=== PATIENT | male | born 1960 | race Caucasian/White ===

== ENCOUNTER 2018-07-05 11:53 | Emergency (ER) | payer OTHER ==
[2018-07-05] MEDS ORDERED: Acetaminophen 325 MG Tab PO ONE (12:45)
[2018-07-05] MEDS ORDERED: oxyCODONE 5 MG Tab PO ONE ×2 (12:46→13:54)
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
[2018-07-05 14:16] VITALS: BP 147/95
== END 2018-07-05 14:43 | disposition home or self-care (01) ==
LOC: JP.ED 11:53
DX: S42.201A Unspecified fracture of upper end of right humerus, initial encounter for closed fracture (principal); Z79.899 Other long term (current) drug therapy; F17.210 Nicotine dependence, cigarettes, uncomplicated; V86.52XA Driver of snowmobile injured in nontraffic accident, initial encounter
CPT/HCPCS: 73030; 99284; A9270

== ENCOUNTER 2019-04-29 14:29 | Emergency (ER) | payer MEDICARE, OTHER ==
[2019-04-29] MEDS ORDERED: LORazepam 1 MG Tab PO ONE (15:02)
[2019-04-29] MEDS ORDERED: Aspirin 81 MG Tab.Chew PO ONE (15:02)
--- NOTE | 2019-04-29 15:06 | EDM.PDOC ---
ED HPI GENERAL MEDICAL PROBLEM - General Chief Complaint: Chest Pain Stated Complaint: CHEST PAIN Time Seen by Provider: 04/29/19 14:54 Source of Information: Reports: Patient, Family, RN Notes Reviewed History Limitations: Reports: No Limitations - History of Present Illness INITIAL COMMENTS - FREE TEXT/NARRATIVE: 58-year-old gentleman presents emergency department today complaint of chest pain, he feels like he is going to , complaint chest pain with radiations up into the jaw he feels short of breath diaphoretic nauseated he states the symptoms have been going on for 4 weeks they happen multiple times a day sometimes lasting for up to 2 hours at a time. He does admit to being under a lot of stress with both his father and his daughter knee requiring care [place] Chest Pain Score (Numeric/FACES): 5 - Related Data Allergies Allergy/AdvReac Type Severity Reaction Status Date / Time No Known Allergies Allergy Verified 07/05/18 12:12 Home Meds: Home Meds Certolizumab Pegol [Cimzia] 11/12/14 [History] Escitalopram [Lexapro] 20 mg PO DAILY 07/05/18 [History] Gabapentin [Neurontin] 300 mg PO TID 07/05/18 [History] Past Medical History Cardiovascular History: Reports: Angina Musculoskeletal History: Reports: Other (See Below) Other Musculoskeletal History: vascular necrosis both legs. . Other Neuro History: Chronic pain syndrome Psychiatric History: Reports: Addiction - Past Surgical History Musculoskeletal Surgical History: Reports: Hip Replacement Other Musculoskeletal Surgeries/Procedures:: Both hips replaced Social & Family History - Family History Cardiac: Reports: CAD, Heart Failure, [place] (Parents, mother age 58 secondary myocardial infarction) - Tobacco Use Smoking Status *Q: Former Smoker - Caffeine Use Caffeine Use: Reports: Coffee - Recreational Drug Use Recreational Drug Use: No ED ROS GENERAL - Review of Systems Review Of Systems: See Below Constitutional: Reports: Diaphoresis HEENT: Reports: No Symptoms Respiratory: Reports: Shortness of Breath Cardiovascular: Reports: Chest Pain, Palpitations GI/Abdominal: Reports: Nausea : Reports: No Symptoms Musculoskeletal: Reports: No Symptoms Skin: Reports: No Symptoms ED EXAM, GENERAL - Physical Exam Exam: See Below Exam Limited By: No Limitations General Appearance: Alert, WD/WN, No Apparent Distress Neck: Normal Inspection, Supple, Non-Tender, Full Range of Motion Respiratory/Chest: No Respiratory Distress, Lungs Clear, Normal Breath Sounds, No Accessory Muscle Use, Chest Non-Tender Cardiovascular: Regular Rate, Rhythm, No Murmur GI/Abdominal: Soft, Non-Tender Course - Vital Signs Last Recorded V/S: Last Vital Signs Temp 96.8 F 04/29/19 14:42 Pulse 89 04/29/19 16:10 Resp 17 04/29/19 16:10 BP 130/92 H 04/29/19 16:10 Pulse Ox 97 04/29/19 16:10 - Orders/Labs/Meds Orders: Active Orders 24 hr Category Date Time Status Cardiac Monitoring [RC] .As Directed Care 04/29/19 15:02 Active EKG Documentation Completion [RC] ASDIRECTED Care 04/29/19 15:02 Active EKG 12 Lead [EK] Stat Ther 04/29/19 15:02 Ordered Labs: Laboratory Tests 04/29/19 04/29/19 Range/Units 15:07 15:07 WBC 6.1 (4.5-11.0) K/uL RBC 4.38 (4.30-5.90) M/uL Hgb 14.2 (12.0-15.0) g/dL Hct 42.2 (40.0-54.0) % MCV 96 (80-98) fL MCH 32 H (27-31) pg MCHC 34 (32-36) % Plt Count 333 (150-400) K/uL Neut % (Auto) 52 (36-66) % Lymph % (Auto) 32 (24-44) % [place] % (Auto) 11 H (2-6) % Eos % (Auto) 4 (2-4) % Baso % (Auto) 1 (0-1) % Sodium (140-148) mmol/L Potassium (3.6-5.2) mmol/L Chloride (100-108) mmol/L Carbon Dioxide (21-32) mmol/L Anion Gap (5.0-14.0) mmol/L BUN (7-18) mg/dL Creatinine (0.8-1.3) mg/dL Est Cr Clr Drug Dosing mL/min Estimated GFR (MDRD) (>60) BUN/Creatinine Ratio Glucose (74-106) mg/dL Calcium (8.5-10.1) mg/dL Total Bilirubin (0.2-1.0) mg/dL AST (15-37) U/L ALT (12-78) U/L Alkaline Phosphatase (46-116) U/L Troponin I < 0.017 (0.000-0.056) ng/mL Total Protein (6.4-8.2) g/dL Albumin (3.4-5.0) g/dL Globulin (2.3-3.5) g/dL Albumin/Globulin Ratio (1.2-2.2) Meds: Medications Discontinued Medications Generic Name Dose Route Start Last Admin Trade Name Hieu PRN Reason Stop Dose Admin Aspirin 324 mg 04/29/19 15:02 04/29/19 15:06 Aspirin PO 04/29/19 15:03 324 mg ONETIME ONE Administration Lorazepam 1 mg 04/29/19 15:02 04/29/19 15:06 Ativan PO 04/29/19 15:03 1 mg ONETIME ONE Administration Departure - Departure Time of Disposition: 16:35 Disposition: Home, Self-Care 01 Condition: Fair Clinical Impression: Panic attack Referrals: PCP,None [Primary Care Provider] - Forms: ED Department Discharge Additional Instructions: Use Ativan as needed for symptomatic relief, Please followup with your primary care provider in 3-5 days if not better, please call return to the emergency department with worsening of symptoms. - My Orders Last 24 Hours: My Active Orders 04/29/19 15:02 Cardiac Monitoring [RC] .As Directed EKG Documentation Completion [RC] ASDIRECTED EKG 12 Lead [EK] Stat - Assessment/Plan Last 24 Hours: My Active Orders 04/29/19 15:02 Cardiac Monitoring [RC] .As Directed EKG Documentation Completion [RC] ASDIRECTED EKG 12 Lead [EK] Stat Plan: Assessment Acuity = acute Site and laterality = panic attack Etiology = generalized anxiety disorder Manifestations = none Location of injury = Home Lab values = CBC, CMP, troponin, chest x-ray, EKG all within normal limits Plan Had good relief with Ativan provided prescription written for Ativan 1 mg by mouth 3 times a day when necessary total #10 him follow-up with his primary care in next 3-5 days for reevaluation This note was dictated using [employer] voice recognition software please call with any questions on syntax or grammar.
--- NOTE | 2019-04-29 15:37 | CRLCR ---
INDICATION: chest pain CHEST, PA AND LATERAL Upright PA and lateral radiographs of the chest were performed. Comparison: No previous studies are currently available for comparison. The lungs appear clear and there are no pleural effusions. Heart size and pulmonary vasculature appear normal. Visualized bones show no significant findings. IMPRESSION: No acute intrathoracic abnormality identified. PEPE OWENS MD [employer] Dictated by: Jimbo Owens MD @ 04/29/2019 15:36:20 (Electronically Signed)
[2019-04-29 16:11] VITALS: BP 130/92; PULSE 89
== END 2019-04-29 16:42 | disposition home or self-care (01) ==
LOC: JP.ED 14:29
DX: F41.0 Panic disorder [episodic paroxysmal anxiety] (principal)
CPT/HCPCS: 36415; 71046; 80053; 84484; 85025; 93005; 99285; A9270

== ENCOUNTER 2021-01-05 11:39 | Emergency (ER) | payer MEDICARE, BC ==
[2021-01-05] MEDS ORDERED: Ondansetron 4 MG/2 ML SDV IVPUSH ONE (12:24)
[2021-01-05] MEDS ORDERED: MVI, Adult with Vitamin K 10 ML, Thiamine 100 MG, Folic Acid 1 MG, Magnesium Sulfate 3 ... IV SCH ×5 (12:30)
--- NOTE | 2021-01-05 13:24 | EDM.PDOC ---
ED HPI GENERAL MEDICAL PROBLEM - General Chief Complaint: Drug or Alcohol Abuse Stated Complaint: ALCOHOL Withdrawal Time Seen by Provider: 01/05/21 12:10 Source of Information: Reports: Patient, Family History Limitations: Reports: No Limitations - History of Present Illness INITIAL COMMENTS - FREE TEXT/NARRATIVE: This is a 60 year old male presenting with alcohol withdrawal. Patient reports that he has been abusing alcohol over the past 1.5 years, but it has gotten worse over the past few months. he reports drinking about a 12 pack of beer daily and sometimes taking additional shots of alcohol. He reports that he tried to stop drinking cold turkey and started to develop withdrawal symptoms, including feeling shaky, sweating, nausea, and heart racing. He did drink 3 bee rs this morning around 7 am to try to help ease his symptoms. no alcohol since then. He has been through alcohol withdrawal a long time ago, but managed himself and has never been to detox before. He feels like he needs detox now. Generalized Pain Score (Numeric/FACES): 9 - Related Data Allergies Allergy/AdvReac Type Severity Reaction Status Date / Time infliximab [From Remicade] Allergy Airway Verified 01/05/21 12:05 Tightness propranolol [From Inderal LA] Allergy Airway Verified 01/05/21 12:05 Tightness Home Meds: Home Meds Certolizumab Pegol [Cimzia] 0 mg IM ASDIRECTED 11/12/14 [History] Escitalopram [Lexapro] 20 mg PO DAILY 07/05/18 [History] Gabapentin [Neurontin] 300 mg PO TID 07/05/18 [History] SUMAtriptan [Imitrex] 50 mg PO ASDIRECTED PRN 01/05/21 [History] Past Medical History HEENT History: Reports: None Cardiovascular History: Reports: Angina Respiratory History: Reports: None Gastrointestinal History: Reports: GERD Genitourinary History: Reports: None Musculoskeletal History: Reports: Other (See Below) Other Musculoskeletal History: vascular necrosis both legs. . Neurological History: Reports: Migraines Other Neuro History: Chronic pain syndrome Psychiatric History: Reports: Addiction Endocrine/Metabolic History: Reports: None Hematologic History: Reports: None Immunologic History: Reports: None Oncologic (Cancer) History: Reports: None Dermatologic History: Reports: None - Infectious Disease History Infectious Disease History: Reports: Mumps - Past Surgical History HEENT Surgical History: Reports: None GI Surgical History: Reports: Appendectomy, [place] Fundoplication Musculoskeletal Surgical History: Reports: Hip Replacement Other Musculoskeletal Surgeries/Procedures:: Both hips replaced Social & Family History - Family History Cardiac: Reports: CAD, Heart Failure, [place] - Tobacco Use Tobacco Use Comment: harpreet uses nicotine gum - Caffeine Use Caffeine Use: Reports: Coffee - Recreational Drug Use Recreational Drug Type: Reports: Marijuana/Hashish Recreational Drug Use Frequency: Rarely ED ROS GENERAL - Review of Systems Review Of Systems: Comprehensive ROS is negative, except as noted in HPI. ED EXAM, GENERAL - Physical Exam Exam: See Below Exam Limited By: No Limitations General Appearance: Alert, No Apparent Distress Eye Exam: Bilateral Eye: PERRL Nose: Normal Inspection Throat/Mouth: Other (MMM. Tongue fasciculations present) Head: Atraumatic, Normocephalic Neck: Supple, Full Range of Motion Respiratory/Chest: No Respiratory Distress, Lungs Clear, Normal Breath Sounds Cardiovascular: Normal Peripheral Pulses, Regular Rate, Rhythm Extremities: No Pedal Edema Neurological: Alert, Oriented, CN II-XII Intact, Other (tremulous. ) Psychiatric: Normal Affect, Normal Mood Skin Exam: Diaphoretic Course - Vital Signs Last Recorded V/S: Last Vital Signs Temp 97.4 F 01/05/21 12:01 Pulse 86 01/05/21 16:05 Resp 16 01/05/21 16:05 BP 141/86 H 01/05/21 16:05 Pulse Ox 98 01/05/21 16:05 - Orders/Labs/Meds Orders: Active Orders 24 hr Category Date Time Status MVI, Adult with Vitamin K [Infuvite Adult] 10 ml Med 01/05/21 12:30 Active Thiamine [Vitamin B-1] 100 mg Folic Acid 1 mg Magnesium Sulfate [Magnesium Sulfate 50%] 3 gm Sodium Chloride 0.9% [Normal Saline] 1,000 ml IV ASDIRECTED Medication Orders Multivitamins/Minerals 10 ml/Thiamine HCl 100 mg/ Folic Acid 1 mg/ Magnesium Sulfate 3 gm/ Sodium Chloride 1,017.2 mls @ 1,000 mls/hr IV ASDIRECTED TANG Last Admin: 01/05/21 13:11 Dose: 1,000 mls/hr Documented by: [email or web address] Labs: Laboratory Tests 01/05/21 01/05/21 01/05/21 Range/Units 12:34 12:34 12:34 WBC 9.5 (4.5-11.0) K/uL RBC 5.10 (4.30-5.90) M/uL Hgb 16.3 H D (12.0-15.0) g/dL Hct 49.3 (40.0-54.0) % MCV 97 (80-98) fL MCH 32 H (27-31) pg MCHC 33 (32-36) % Plt Count 361 (150-400) K/uL Neut % (Auto) 69.0 H (36-66) % Lymph % (Auto) 22.5 L (24-44) % [place] % (Auto) 7.8 H (2-6) % Eos % (Auto) 0.4 L (2-4) % Baso % (Auto) 0.3 (0-1) % Sodium 143 (140-148) mmol/L Potassium 4.5 (3.6-5.2) mmol/L Chloride 103 (100-108) mmol/L Carbon Dioxide 26 (21-32) mmol/L Anion Gap 14.5 H (5.0-14.0) mmol/L BUN 7 (7-18) mg/dL Creatinine 1.0 (0.8-1.3) mg/dL Est Cr Clr Drug Dosing 76.00 mL/min Estimated GFR (MDRD) > 60 (>60) Glucose 103 (74-106) mg/dL Calcium 10.0 (8.5-10.1) mg/dL Total Bilirubin 1.0 (0.2-1.0) mg/dL AST 25 (15-37) U/L ALT 42 (12-78) U/L Alkaline Phosphatase 85 (46-116) U/L Total Protein 8.5 H (6.4-8.2) g/dL Albumin 4.7 (3.4-5.0) g/dL Globulin 3.8 H (2.3-3.5) g/dL Albumin/Globulin Ratio 1.2 (1.2-2.2) Urine Opiates Screen (NEGATIVE) Ur Oxycodone Screen (NEGATIVE) Urine Methadone Screen (NEGATIVE) Ur Propoxyphene Screen (NEGATIVE) Ur Barbiturates Screen (NEGATIVE) Ur Tricyclics Screen (NEGATIVE) Ur Phencyclidine Scrn (NEGATIVE) Ur Amphetamine Screen (NEGATIVE) U Methamphetamines Scrn (NEGATIVE) Urine MDMA Screen (NEGATIVE) U Benzodiazepines Scrn (NEGATIVE) U Cocaine Metab Screen (NEGATIVE) U Marijuana (THC) Screen (NEGATIVE) Ethyl Alcohol < 3 mg/dL SARS CoV-2 RNA Rapid JAMIE 01/05/21 01/05/21 Range/Units 13:55 15:52 WBC (4.5-11.0) K/uL RBC (4.30-5.90) M/uL Hgb (12.0-15.0) g/dL Hct (40.0-54.0) % MCV (80-98) fL MCH (27-31) pg MCHC (32-36) % Plt Count (150-400) K/uL Neut % (Auto) (36-66) % Lymph % (Auto) (24-44) % [place] % (Auto) (2-6) % Eos % (Auto) (2-4) % Baso % (Auto) (0-1) % Sodium (140-148) mmol/L Potassium (3.6-5.2) mmol/L Chloride (100-108) mmol/L Carbon Dioxide (21-32) mmol/L Anion Gap (5.0-14.0) mmol/L BUN (7-18) mg/dL Creatinine (0.8-1.3) mg/dL Est Cr Clr Drug Dosing mL/min Estimated GFR (MDRD) (>60) Glucose (74-106) mg/dL Calcium (8.5-10.1) mg/dL Total Bilirubin (0.2-1.0) mg/dL AST (15-37) U/L ALT (12-78) U/L Alkaline Phosphatase (46-116) U/L Total Protein (6.4-8.2) g/dL Albumin (3.4-5.0) g/dL Globulin (2.3-3.5) g/dL Albumin/Globulin Ratio (1.2-2.2) Urine Opiates Screen Negative (NEGATIVE) Ur Oxycodone Screen Negative (NEGATIVE) Urine Methadone Screen Negative (NEGATIVE) Ur Propoxyphene Screen Negative (NEGATIVE) Ur Barbiturates Screen Negative (NEGATIVE) Ur Tricyclics Screen Presumptive positive H (NEGATIVE) Ur Phencyclidine Scrn Negative (NEGATIVE) Ur Amphetamine Screen Negative (NEGATIVE) U Methamphetamines Scrn Negative (NEGATIVE) Urine MDMA Screen Negative (NEGATIVE) U Benzodiazepines Scrn Negative (NEGATIVE) U Cocaine Metab Screen Negative (NEGATIVE) U Marijuana (THC) Screen Presumptive positive H (NEGATIVE) Ethyl Alcohol mg/dL SARS CoV-2 RNA Rapid JAMIE Negative Meds: Medications Generic Name Dose Route Start Last Admin Trade Name Freq PRN Reason Stop Dose Admin Multivitamins/Minerals 10 ml/ 1,017.2 mls @ 1,000 mls/hr 01/05/21 12:30 01/05/21 13:11 Thiamine HCl 100 mg/ Folic IV 1,000 mls/hr Acid 1 mg/ Magnesium Sulfate 3 ASDIRECTED TANG Administration gm/ Sodium Chloride Discontinued Medications Generic Name Dose Route Start Last Admin Trade Name Freq PRN Reason Stop Dose Admin Diazepam 5 mg 01/05/21 12:24 01/05/21 13:09 Diazepam 10 Mg/2 Ml Syringe IVPUSH 01/05/21 12:25 5 mg ONETIME ONE Administration Diazepam 10 mg 01/05/21 13:28 01/05/21 13:54 Diazepam 5 Mg Tab PO 01/05/21 13:29 10 mg ONETIME ONE Administration Diazepam 10 mg 01/05/21 15:36 01/05/21 15:44 Diazepam 5 Mg Tab PO 01/05/21 15:37 10 mg ONETIME ONE Administration Ondansetron HCl 4 mg 01/05/21 12:24 01/05/21 13:04 Ondansetron 4 Mg/2 Ml Sdv IVPUSH 01/05/21 12:25 4 mg ONETIME ONE Administration Departure - Departure Time of Disposition: 15:37 (Discharged to Detox) Disposition: DC/Tfer to Other 70 Condition: Good Clinical Impression: Alcohol abuse Alcohol withdrawal Qualifiers: Complication of substance-induced condition: uncomplicated - Discharge Information Instructions: Alcohol Withdrawal Syndrome, Alcohol Abuse and Dependence Information, Adult Referrals: PCP,None [Primary Care Provider] - Forms: ED Department Discharge Sepsis Event Note (ED) - Evaluation Sepsis Screening Result: No Definite Risk - Focused Exam Vital Signs: Vital Signs Temp Pulse Resp BP Pulse Ox 01/05/21 16:05 86 16 141/86 H 98 01/05/21 13:56 92 16 127/88 99 01/05/21 12:01 97.4 F 110 H 20 170/120 H 95 - Problem List Review Problem List Initiated/Reviewed/Updated: Yes - My Orders Last 24 Hours: My Active Orders 01/05/21 12:30 MVI, Adult with Vitamin K [Infuvite Adult] 10 ml Thiamine [Vitamin B-1] 100 mg Folic Acid 1 mg Magnesium Sulfate [Magnesium Sulfate 50%] 3 gm Sodium Chloride 0.9% [Normal Saline] 1,000 ml IV ASDIRECTED - Assessment/Plan Last 24 Hours: My Active Orders 01/05/21 12:30 MVI, Adult with Vitamin K [Infuvite Adult] 10 ml Thiamine [Vitamin B-1] 100 mg Folic Acid 1 mg Magnesium Sulfate [Magnesium Sulfate 50%] 3 gm Sodium Chloride 0.9% [Normal Saline] 1,000 ml IV ASDIRECTED Assessment:: This is a 60 year old male presenting with alcohol withdrawal. No history of withdrawal seizures and no evidence of any seizure activity today. His work-up today has been otherwise unremarkable. He was treated with a banana bag and one dose of IV and two doses of PO Valium in the ED with improvement of his withdrawal symptoms. He is stable for discharge to detox for continued management of his alcohol withdrawal. Transported to detox by private vehicle by his .
[2021-01-05] MEDS ORDERED: Diazepam 5 MG Tab PO ONE ×2 (13:28→15:36)
[2021-01-05 16:05] VITALS: BP 141/86; PULSE 86
== END 2021-01-05 16:56 | disposition other institution (70) ==
LOC: JP.ED 11:39
DX: F10.130 Alcohol abuse with withdrawal, uncomplicated (principal); G43.909 Migraine, unspecified, not intractable, without status migrainosus; Z88.8 Allergy status to other drugs, medicaments and biological substances; Z79.899 Other long term (current) drug therapy; Z20.822 Contact with and (suspected) exposure to COVID-19
CPT/HCPCS: 36415; 80053; 80305; 80307; 85025; 96365; 96375; 99285; A9270; J2405; J3360; J3411; J3475; J7030; U0002; J3490

== ENCOUNTER 2023-02-11 12:09 | Emergency (ER) | payer MEDICARE, BC ==
[2023-02-11 12:21] LABS: BASOPHILS ABSOLUTE AUTO 0.05 K/uL (0.00-0.10); BASOPHILS PERCENT AUTO 0.9 % (0.1-1.3); EOSINOPHILS ABSOLUTE AUTO 0.18 K/uL (0.00-0.40); EOSINOPHILS PERCENT AUTO 3.1 % (0.0-5.4); HEMATOCRIT 41.5 % (38.4-49.7); HEMOGLOBIN 14.3 g/dL (12.9-16.9); IMMATURE GRAN PERCENT AUTO 0.2 % (0.0-0.7); LYMPHOCYTES ABSOLUTE AUTO 2.59 K/uL (0.8-3.3); LYMPHOCYTES PERCENT AUTO 44.2 % (11.4-47.7); MEAN CORPUSCULAR HEMOGLOBIN 31.4 pg (31.6-35.5); MEAN CORPUSCULAR HGB CONC 34.5 g/dL (31.6-35.5); MONOCYTES ABSOLUTE AUTO 0.45 K/uL (0.20-0.90); MONOCYTES PERCENT AUTO 7.7 % (3.3-12.6); NEUTROPHILS ABSOLUTE AUTO 2.58 K/uL (1.0-7.6); NEUTROPHILS PERCENT AUTO 43.9 % (40.0-78.1); PLATELET COUNT,PLT 299 K/uL (130-375); RED BLOOD CELL COUNT 4.56 M/uL (4.14-5.76); WHITE BLOOD CELL COUNT,WBC 5.9 K/uL (3.2-11.0)
[2023-02-11 12:22] LABS: IMMATURE GRAN ABSOLUTE AUTO 0.01 K/uL (0.00-0.23)
[2023-02-11 12:46] LABS: BLOOD UREA NITROGEN,BUN 7 mg/dL (7-18); CALCIUM 9.4 mg/dL (8.5-10.1); CARBON DIOXIDE,CO2 28 mmol/L (21-32); CHLORIDE,CL 106 mmol/L (100-108); CREATININE 0.9 mg/dL (0.8-1.3); EST CRCL DRUG DOSING (CG) 82.33 mL/min; ESTIMATED GFR 97 mL/min (>60); GLUCOSE RANDOM 103 mg/dL (74-106); POTASSIUM,K 3.9 mmol/L (3.6-5.2); SODIUM,NA 144 mmol/L (140-148)
[2023-02-11 12:49] LABS: TROPONIN I HIGH SENSITIVITY < 4.0 pg/mL (<=60.3)
[2023-02-11 15:59] VITALS: BP 131/71; PULSE 62
== END 2023-02-11 16:01 | disposition home or self-care (01) ==
LOC: JP.ED 12:09
DX: F41.9 Anxiety disorder, unspecified (principal); I25.119 Atherosclerotic heart disease of native coronary artery with unspecified angina pectoris; I25.2 Old myocardial infarction; Z87.891 Personal history of nicotine dependence; Z79.899 Other long term (current) drug therapy; Z88.8 Allergy status to other drugs, medicaments and biological substances; Z88.4 Allergy status to anesthetic agent
CPT/HCPCS: 36415; 80048; 84484; 85025; 93005; 99285

== ENCOUNTER 2023-06-30 07:58 | Emergency (ER) | payer OTHER, MEDICARE ==
[2023-06-30 08:45] LABS: HEMATOCRIT 44.6 % (38.4-49.7); MEAN CORPUSCULAR HEMOGLOBIN 31.1 pg (31.6-35.5); MEAN CORPUSCULAR HGB CONC 35.9 g/dL (31.6-35.5); MEAN CORPUSCULAR VOLUME 86.6 fL (81.4-99.0); PLATELET COUNT,PLT 319 K/uL (130-375); RED BLOOD CELL COUNT 5.15 M/uL (4.14-5.76); WHITE BLOOD CELL COUNT,WBC 8.1 K/uL (3.2-11.0)
[2023-06-30] MEDS ORDERED: Sodium Chloride 0.9% 1,000 ML IV ONE (08:45)
[2023-06-30 09:04] LABS: ATYPICAL LYMPHOCYTES FEW; BAND ABSOLUTE MAN 0.41 K/uL; BAND PERCENT MAN 5 % (5-11); LYMPHOCYTES ABSOLUTE MAN 2.11 K/uL (0.8-3.3); LYMPHOCYTES PERCENT MAN 26 % (24-44); MONOCYTES ABSOLUTE MAN 0.65 K/uL (0.20-0.90); MONOCYTES PERCENT MAN 8 % (2-6); NEUTROPHILS ABSOLUTE MAN 4.94 K/uL (1.0-7.6); SEG NEUTROPHILS PERCENT MAN 61 % (36-66)
[2023-06-30 09:06] LABS: A/G RATIO 0.8 (1.2-2.2); ALANINE AMINOTRANSFERASE,ALT 34 U/L (12-78); ALBUMIN 3.7 g/dL (3.4-5.0); ALKALINE PHOSPHATASE 96 U/L (46-116); ASPARTATE AMNIOTRANSFERASE,AST 41 U/L (15-37); BILIRUBIN TOTAL 0.5 mg/dL (0.2-1.0); BLOOD UREA NITROGEN,BUN 10 mg/dL (7-18); C-REACTIVE PROTEIN 5.89 mg/dL (<0.50); CALCIUM 8.6 mg/dL (8.5-10.1); CARBON DIOXIDE,CO2 26 mmol/L (21-32); CHLORIDE,CL 95 mmol/L (100-108); EST CRCL DRUG DOSING (CG) 73.15 mL/min; ESTIMATED GFR 85 mL/min (>60); GLUCOSE RANDOM 114 mg/dL (74-106); PROTEIN TOTAL,TP 8.1 g/dL (6.4-8.2); SODIUM,NA 132 mmol/L (140-148)
[2023-06-30 09:10] LABS: ANION GAP 13.9 mmol/L (5.0-14.0)
[2023-06-30 09:12] LABS: POTASSIUM,K 2.9 mmol/L (3.6-5.2)
[2023-06-30] MEDS ORDERED: Ketorolac 30 MG/ML SDV IVPUSH ONE (09:20)
[2023-06-30 09:23] LABS: CORONAVIRUS COVID-19 NAA NEGATIVE (NEGATIVE); INFLUENZA A NAA POSITIVE (NEGATIVE); INFLUENZA B NAA NEGATIVE (NEGATIVE); RESPIRATORY SYNCYTIAL VIR NAA NEGATIVE (NEGATIVE)
[2023-06-30] MEDS ORDERED: Potassium Chloride 10% 20 MEQ/15 ML Soln 15 ML UD Cup PO ONE (09:23)
[2023-06-30] MEDS ORDERED: Potassium Chloride 20 MEQ Tab.ER PO ONE (09:32)
[2023-06-30 09:36] VITALS: BP 139/95; PULSE 87
== END 2023-06-30 11:21 | disposition home or self-care (01) ==
LOC: JP.ED 07:58
DX: J10.1 Influenza due to other identified influenza virus with other respiratory manifestations (principal); E87.6 Hypokalemia; I25.10 Atherosclerotic heart disease of native coronary artery without angina pectoris; I25.2 Old myocardial infarction; Z20.822 Contact with and (suspected) exposure to COVID-19; Z90.49 Acquired absence of other specified parts of digestive tract
CPT/HCPCS: 0241U; 36415; 71046; 80053; 83605; 85025; 86140; 96361; 96374; 99284; A9270; J1885; J7030

== ENCOUNTER 2024-10-09 19:08 | Emergency (ER) | payer MEDICARE, OTHER ==
[2024-10-09] MEDS ORDERED: Naloxone 0.4 MG/ML SDV IVPUSH PRN (19:57)
[2024-10-09] MEDS: HYDROmorphone 0.5 MG/0.5 ML Syringe IVPUSH ONE (20:09)
[2024-10-09] MEDS: Lidocaine 1% with EPINEPHrine 1:100,000 20 ML MDV INJECT ONE (21:09)
[2024-10-09] MEDS: traMADol 50 MG Tab PO ONE (21:45)
[2024-10-09] MEDS: Diphtheria,Pertussis(Acell),Tetanus Vaccine 0.5 ML Syringe IM ONE (21:45)
[2024-10-09] MEDS: Bacitracin Oint 1 GM U/D Packet TOP ONE (21:45)
[2024-10-09] MEDS: Amoxicillin/Clavulanate K 875-125 MG Tab PO ONE (21:45)
== END 2024-10-09 22:00 | disposition home or self-care (01) ==
LOC: JP.ED 19:08
DX: S61.512A Laceration without foreign body of left wrist, initial encounter (principal); I25.2 Old myocardial infarction; I25.10 Atherosclerotic heart disease of native coronary artery without angina pectoris; Z79.899 Other long term (current) drug therapy; Z88.8 Allergy status to other drugs, medicaments and biological substances; Z23 Encounter for immunization; W26.8XXA Contact with other sharp object(s), not elsewhere classified, initial encounter; Y93.89 Activity, other specified
CPT/HCPCS: 12002; 73090-26-LT; 73090-LT; 90471; 90715; 96374; 99283; 99284-25; A9270-GY; J2004

== ENCOUNTER 2024-11-12 08:17 | Day surgery (SDC) | payer OTHER ==
[2024-11-12] MEDS ORDERED: Propofol 200 MG/20 ML SDV ONE ×2 (09:08→11:20)
[2024-11-12] MEDS: Lactated Ringers 1,000 ML IV SCH (09:09)
[2024-11-12] MEDS ORDERED: fentaNYL 100 MCG/2 ML SDV ONE (09:09)
[2024-11-12] MEDS ORDERED: Midazolam 1 MG/ML 2 ML SDV ONE (09:09)
[2024-11-12 12:44] VITALS: BP 143/86; PULSE 63
== END 2024-11-12 12:48 | disposition home or self-care (01) ==
LOC: JP.SDS 08:17
PROVIDERS: ATTEND Family Medicine
DX: D12.3 Benign neoplasm of transverse colon (principal); K57.30 Diverticulosis of large intestine without perforation or abscess without bleeding; R63.4 Abnormal weight loss
CPT/HCPCS: 00811; 45380; J2250; J2704; J3010; J7120